=== PATIENT | male | born 1995 | race African-American/Black ===

== ENCOUNTER 2017-02-27 09:02 | Emergency (ER) | payer BC, MEDICAID ==
[2017-02-27 09:08] VITALS: BP 142/85
[2017-02-27] MEDS ORDERED: DEXAMETHASONE SOD PHOS INJ 10 MG/1 ML VIAL IM ONE (09:20)
[2017-02-27] MEDS ORDERED: PENICILLIN G BENZATHINE 1.2 MILLION UNIT/2 ML DISP.SYRIN IM ONE (09:20)
--- NOTE | 2017-02-27 09:26 | ER Document Report ---
HPI - HPI Patient complains to provider of: sore throat Onset: Last week Onset/Duration: Gradual Quality of pain: Achy Severity: Moderate Pain Level: 3 Context: This is a 21-year-old male with no medical problems who presents to the emergency room with sore throat for the last week. Patient's mother states she did give him "an antibiotic" for 2 days a few days ago. The patient states he' s been having chills but no fever. He denies any fatigue. He has some pain on swallowing but has no difficulty handling food and fluids. Associated Symptoms: Chills Exacerbated by: Denies Relieved by: Denies Similar symptoms previously: No Recently seen / treated by doctor: No - CONSTITUTIONAL Constitutional: REPORTS: Chills. DENIES: Fever - EENT EENT: REPORTS: Sore Throat - NEURO Neurology: DENIES: Headache - CARDIOVASCULAR Cardiovascular: DENIES: Chest pain - RESPIRATORY Respiratory: DENIES: Trouble Breathing - GASTROINTESTINAL Gastrointestinal: DENIES: Abdominal Pain - DERM Skin Color: Normal Skin Problems: None Past Medical History - General Information source: Patient - Social History Smoking Status: Never Smoker Cigarette use (# per day): No Chew tobacco use (# tins/day): No Frequency of alcohol use: None Drug Abuse: None Lives with: Family Family History: Reviewed & Not Pertinent Patient has suicidal ideation: No Patient has homicidal ideation: No - Medical History Medical History: Negative Renal/ Medical History: Denies: Hx Peritoneal Dialysis Surgical Hx: Negative Vertical Provider Document - CONSTITUTIONAL Agree With Documented VS: Yes Exam Limitations: No Limitations General Appearance: WD/WN Notes: Patient looks quite comfortable and is in no distress. - INFECTION CONTROL TRAVEL OUTSIDE OF THE [place] IN LAST 30 DAYS: No - HEENT HEENT: Atraumatic, Normocephalic Mouth Diagram: 1 - Enlarged exudative tonsils 2 - Enlarged exudative tonsils Notes: Patient has enlarged bilateral exudative tonsillitis. There is no fluctuance or uvula deviation. Other than the tonsils, the posterior pharynx does not have any edema or swelling. There is no drooling or stridor. - NECK Neck: Normal Inspection - RESPIRATORY Respiratory: Breath Sounds Normal O2 Sat by Pulse Oximetry: 100 - NEURO Level of Consciousness: Awake - DERM Integumentary: Warm Course - Re-evaluation Re-evalutation: 02/27/17 09:24 Note: This is a 21-year-old male with no medical problems who presents with sore throat and has enlarged exudative tonsils. There is no evidence of abscess , toxicity, or airway impingement. The patient looks quite comfortable at this time. He is treated with IM Decadron for symptom relief and IM penicillin. 02/27/17 09:25 Note: His blood pressure has been borderline high. I did discuss this with the mom and recommend following up with a primary care doctor. - Vital Signs Vital signs: Temp Pulse Resp BP Pulse Ox 99.0 F 93 16 142/85 H 100 02/27/17 09:05 02/27/17 09:05 02/27/17 09:05 02/27/17 09:05 02/27/17 09:05 Discharge - Discharge Clinical Impression: exudative tonsillitis Condition: Stable Disposition: HOME, SELF-CARE Instructions: Penicillin V K ([facility]) Additional Instructions: Recommendations: Rest, drink plenty of fluids, Tylenol for fever. Take antibiotics as prescribed. Follow-up with an ENT Doctor: [facility] - [address] [place] [address] Toll Free: As we discussed, the blood pressure was a little elevated (borderline high blood pressure) and a follow-up blood pressure is recommended in the next week or so. I left the number for Dr. Lewis. Alternatively, you could get a primary care doctor more locally and [place]. Prescriptions: Penicillin V Potassium [Penicillin Vk 500 mg Tablet] 500 mg PO QID #28 tablet Forms: Elevated Blood Pressure, Return to Work Referrals: ROHIT LEWIS DO [NO LOCAL MD] - Follow up as needed
== END 2017-02-27 09:30 | disposition home or self-care (01) ==
LOC: ER 09:02
DX: J03.90 Acute tonsillitis, unspecified (principal); R68.83 Chills (without fever)
CPT/HCPCS: 99282; 96372; J0561; J1100